=== PATIENT | female | born 1970 | race Two or more races ===

== ENCOUNTER → 2021-03-02 | Outpatient (CLI) | payer SELFPAY ==
--- NOTE | 2021-03-02 12:26 | LES_PTH ---
PATIENT: EDITA DEL ANGEL LOC: [facility] U#:[id number] AGE/SX: 50/F ROOM: RE03/02/[address]: Dr. Primitivo Grewal MD : 1970 BED: DIS: 03/02/2021 SPEC #: [id number] RECD: 03/02/21 15:10 STATUS: YOU RETay #: [id number] YANELIS: 03/02/21 12:[address]: Primitivo Grewal DEPT: SURGICAL PATHOLOGY RECD BY: Nita Blakely ENTERED: 03/03/21 07:53 SP TYPE: Lesion OTHR DR: No Primary Care Phys [facility] Tissues: Skin of face, NOS Procedures: Surgery Specimen Level IV HEADER OPERATION: Excision benign lesion face PRE-OP DIAGNOSIS: Neoplasm TISSUE SUBMITTED: Facial skin lesion, short stitch ? superior, long stitch - posterior MICROSCOPIC DIAGNOSIS Facial skin lesion, excision: Compound nevus. MICHELLE:wilder 03/04/2021 MICROSCOPIC DESCRIPTION Slides are reviewed. GROSS DESCRIPTION Received in fixative is one container labeled with the patient's name and designated facial skin lesion. The specimen consists of a herrera-white skin ellipse measuring 1.7 x 1 cm and up to 0.4 cm in thickness. The specimen is oriented by sutures as follows: short stitch - superior, long stitch - posterior. The specimen is inked as follows: superior tip - yellow, inferior tip - green, anterior margin - black, posterior margin - blue. The specimen is serially sectioned and submitted entirely in two cassettes as follows: 1??superior and inferior tip, 2 - rest of the specimen. / SJ:wilder 03/03/21 TC:1 [facility]: [id number]
== END | disposition home or self-care (01) ==
PROVIDERS: Referring Provider Otolaryngology; Visit Provider Otolaryngology
DX: D22.30 Melanocytic nevi of unspecified part of face (principal)
CPT/HCPCS: 88305